=== PATIENT | male | born 1995 | race Caucasian/White ===

== ENCOUNTER 2016-12-14 15:05 | Emergency (ER) | payer BC ==
[~2016-12-14] VITALS: Ht 185.4 cm; Wt 76.5 kg
[2016-12-14 15:13] VITALS: TEMP 37.1; Ht 185.4 cm; Wt 76.5 kg
[2016-12-14] MEDS ORDERED: ONDANSETRON INJ 2 MG/ML 2 ML VIAL IV STA (15:28)
[2016-12-14] MEDS ORDERED: SODIUM CHLORIDE 0.9% 1000ML 2,000 ML IV STA (15:28)
[2016-12-14] MEDS ORDERED: GI COCKTAIL PO STA (15:28)
[2016-12-14] MEDS ORDERED: KETOROLAC TROMETHAMINE 30 MG/ML VIAL IV STA (15:28)
[2016-12-14] MEDS ORDERED: LIDOCAINE HCL 2% VISC SOLN 20 ML UDC ONE (15:58)
[2016-12-14] MEDS ORDERED: ALUMINUM/MAGNESIUM SUSP 30 ML UDC ONE (15:59)
[2016-12-14 16:09] LABS: BASO % 0.2 %; BASO ABS # 0.01 K/uL (0-0.2); COMPLETE YES; EOS % 2.6 %; HEMATOCRIT 42.6 % (42-52); IG% 0.2 %; LYMPH ABS # 1.22 K/uL (1.2-3.4); MEAN CELL VOLUME 86.6 fL (80-100); MEAN CORPUSCULAR HEMOGLOBIN 31.5 pg (25-34); MEAN CORPUSCULAR HGB CONC 36.4 g/dl (32-36); MONO % 9.8 %; NEUT % 63.2 %; PLATELET COUNT 172 K/uL (130-400); RED BLOOD COUNT 4.92 M/uL (4.7-6.1); WHITE BLOOD COUNT 5.08 K/uL (4.8-10.8)
--- NOTE | 2016-12-14 16:20 | DIAGNOSTIC IMAGING REPORT ---
PA CHEST WITH ABDOMINAL SERIES CLINICAL HISTORY: Abdominal bloating. FINDINGS: A PA chest radiograph is obtained. No prior studies are available for comparison at the time of dictation. The cardiomediastinal silhouette is unremarkable. The lungs and pleural spaces are clear. No pneumothorax is seen. The bony thorax is grossly intact. Supine and erect abdominal radiographs are obtained. No prior studies are available for comparison at the time of dictation. There is a nonobstructed abdominal bowel gas pattern. Mild to moderate colonic fecal retention is observed. No evidence of intraperitoneal free air is seen. There are no abnormal abdominal calcifications. The lumbosacral spine and bony pelvis appear intact. IMPRESSION: 1. No active disease in the chest. 2. Unremarkable abdominal radiographs. Electronically signed by: Jay De Leon M.D. 12/14/2016 4:18 PM Dictated Date/Time: 12/14/2016 4:17 PM
[2016-12-14 16:29] LABS: BUN/CREATININE RATIO 14.6 (10-20); CALCIUM 8.9 mg/dl (8.5-10.1); CREATININE 0.95 mg/dl (0.60-1.40); POTASSIUM 3.6 mmol/L (3.5-5.1)
[2016-12-14] MEDS ORDERED: AMPH30TA2 PO (16:34)
--- NOTE | 2016-12-14 17:14 | DIAGNOSTIC IMAGING REPORT ---
Right upper quadrant ultrasound GALLBLADDER-ABD LIMITED CLINICAL HISTORY: parepigastric abd pain pain. Nausea. TECHNIQUE: Ultrasound COMPARISON STUDY: None FINDINGS: Normal gallbladder. Gallbladder wall 3 mm. Common bile duct 4 mm. Liver is uniform. Pancreas and right kidney unremarkable. IMPRESSION: Negative study Electronically signed by: Brice Guardado M.D. 12/14/2016 5:12 PM Dictated Date/Time: 12/14/2016 5:12 PM
[2016-12-14] MEDS ORDERED: FAMO20TA11 PO (17:45)
[2016-12-14 18:40] VITALS: BP 123/60; O2SAT 96
[2016-12-14 19:00] VITALS: PULSE 110
--- NOTE | 2016-12-14 21:56 | EMERGENCY ROOM VISIT NOTE ---
History Report prepared by Abhishek: La Garcia Under the Supervision of: Dr. Arnoldo Bonds D.O. First contact with patient: 15:19 Chief Complaint: ABDOMINAL PAIN Stated Complaint: STOMACH PAIN Nursing Triage Summary: pt to the ED with diffuse abd pain and reflux indigestion for 4 days sent over from [facility] +n/v History of Present Illness The patient is a 21 year old male who presents to the Emergency Room with complaints of persistent epigastric abdominal pain that began four days ago. He currently rates his discomfort as a 6/10 in severity. The patient states he went away this weekend and was drinking most of the weekend. He states that he ate a piece of pizza Monday night and then woke up Monday morning around 0600 vomiting. The patient states that he did not drink so excessively that caused him to vomit. He states that he continued to vomit throughout the weekend. The patient states that his one roommate was recently sick with a stomach virus , and additionally notes that he was sick earlier this year with a stomach virus. He states that today his symptoms feel different. The patient notes abdominal bloating, acid reflux, and nausea with his symptoms today. He states that he noticed chest pain and back pain on Monday night. He notes a decrease in appetite and states that his symptoms are worsened after eating. The patient states that over the last few months he has noticed a pain in behind his bellybutton. He states that his last bowel movement was last evening, stating it was normal. The patient states that he has taken Pepto Bismol with slight relief of his symptoms. He states that he was evaluated at [facility] today for his symptoms and was referred to the emergency department for further work up. Pt denies headache, change in vision, fevers, chest pain, shortness of breath, hematemesis diarrhea, pain with urination, and melena. Source of History: patient Onset: four days ago Position: abdomen (epigastric) Symptom Intensity: 6/10 Timing: other (persistent) Modifying Factors (Worsening): eating Modifying Factors (Relieving): other (Pepto) Associated Symptoms: + nausea, + vomiting Note: Associated Symptoms: abdominal bloating, acid reflux Review of Systems See HPI for pertinent positives & negatives. A total of 10 systems reviewed and were otherwise negative. Past Medical & Surgical Medical Problems: (1) No active medical problems Family History Diabetes mellitus FH: heart disease Hypertension Seizures Social History Smoking Status: Current Every Day Smoker Alcohol Use: occasionally Marital Status: single Housing Status: lives with roommate Occupation Status: [employer] student Current/Historical Medications Scheduled Famotidine (Pepcid), 20 MG PO DAILY Scheduled PRN Amphetamine-Dextroamphetamine 30MG (Adderall 30MG), 30 MG PO BID PRN for Focus Allergies Coded Allergies: No Known Allergies (Unverified , 12/14/16) Physical Exam Vital Signs Date Time Temp Pulse Resp B/P Pulse Ox O2 Delivery O2 Flow Rate FiO2 12/14/16 19:00 110 12/14/16 18:40 67 14 123/60 96 12/14/16 17:30 67 12 119/52 98 Room Air 12/14/16 15:13 37.1 65 16 132/70 99 Physical Exam GENERAL: Sitting up in bed, alert, well appearing, well nourished, no distress, non-toxic EYE EXAM: normal conjunctiva, PERRL and EOM's grossly intact OROPHARYNX: no exudate, no erythema, lips, buccal mucosa, and tongue normal and mucous membranes are moist NECK: supple, no nuchal rigidity, no adenopathy, non-tender LUNGS: Clear to auscultation. Normal chest wall mechanics HEART: no murmurs, S1 normal and S2 normal ABDOMEN: Minimal tenderness in epigastric and right upper quadrant. abdomen soft, normo-active bowel sounds, no masses, no rebound or guarding. BACK: Back is symmetrical on inspection and there is no deformity, no midline tenderness, no CVA tenderness. SKIN: no rashes and no bruising UPPER EXTREMITIES: upper extremities are grossly normal. LOWER EXTREMITIES: No pitting edema. NEURO EXAM: Normal sensorium, cranial nerves II-XII grossly intact, normal speech, no gross weakness of arms, no gross weakness of legs. Medical Decision & Procedures ER Provider Diagnostic Interpretation: Xray results per the radiologist and my interpretation. Other results have been interpreted by the radiologist and reviewed by me. Right upper quadrant ultrasound GALLBLADDER-ABD LIMITED CLINICAL HISTORY: parepigastric abd pain pain. Nausea. TECHNIQUE: Ultrasound COMPARISON STUDY: None FINDINGS: Normal gallbladder. Gallbladder wall 3 mm. Common bile duct 4 mm. Liver is uniform. Pancreas and right kidney unremarkable. IMPRESSION: Negative study Electronically signed by: Brice Guardado M.D. 12/14/2016 5:12 PM Dictated Date/Time: 12/14/2016 5:12 PM PA CHEST WITH ABDOMINAL SERIES CLINICAL HISTORY: Abdominal bloating. FINDINGS: A PA chest radiograph is obtained. No prior studies are available for comparison at the time of dictation. The cardiomediastinal silhouette is unremarkable. The lungs and pleural spaces are clear. No pneumothorax is seen. The bony thorax is grossly intact. Supine and erect abdominal radiographs are obtained. No prior studies are available for comparison at the time of dictation. There is a nonobstructed abdominal bowel gas pattern. Mild to moderate colonic fecal retention is observed. No evidence of intraperitoneal free air is seen. There are no abnormal abdominal calcifications. The lumbosacral spine and bony pelvis appear intact. IMPRESSION: 1. No active disease in the chest. 2. Unremarkable abdominal radiographs. Electronically signed by: Jay De Leon M.D. 12/14/2016 4:18 PM Dictated Date/Time: 12/14/2016 4:17 PM Laboratory Results 12/14/16 15:45 Red Blood Count 4.92, Mean Corpuscular Volume 86.6, Mean Corpuscular Hemoglobin 31.5, Mean Corpuscular Hemoglobin Concent 36.4, Mean Platelet Volume 10.0, Neutrophils (%) (Auto) 63.2, Lymphocytes (%) (Auto) 24.0, Monocytes (%) (Auto) 9.8, Eosinophils (%) (Auto) 2.6, Basophils (%) (Auto) 0.2, Neutrophils # (Auto) 3.21, Lymphocytes # (Auto) 1.22, Monocytes # (Auto) 0.50, Eosinophils # (Auto) 0.13, Basophils # (Auto) 0.01 12/14/16 15:45 Test 12/14/16 15:45 White Blood Count 5.08 K/uL (4.8-10.8) Red Blood Count 4.92 M/uL (4.7-6.1) Hemoglobin 15.5 g/dL (14.0-18.0) Hematocrit 42.6 % (42-52) Mean Corpuscular Volume 86.6 fL (80-100) Mean Corpuscular Hemoglobin 31.5 pg (25-34) Mean Corpuscular Hemoglobin Concent 36.4 g/dl (32-36) Platelet Count 172 K/uL (130-400) Mean Platelet Volume 10.0 fL (7.4-10.4) Neutrophils (%) (Auto) 63.2 % Lymphocytes (%) (Auto) 24.0 % Monocytes (%) (Auto) 9.8 % Eosinophils (%) (Auto) 2.6 % Basophils (%) (Auto) 0.2 % Neutrophils # (Auto) 3.21 K/uL (1.4-6.5) Lymphocytes # (Auto) 1.22 K/uL (1.2-3.4) Monocytes # (Auto) 0.50 K/uL (0.11-0.59) Eosinophils # (Auto) 0.13 K/uL (0-0.5) Basophils # (Auto) 0.01 K/uL (0-0.2) RDW Standard Deviation 39.9 fL (36.4-46.3) RDW Coefficient of Variation 12.5 % (11.5-14.5) Immature Granulocyte % (Auto) 0.2 % Immature Granulocyte # (Auto) 0.01 K/uL (0.00-0.02) Anion Gap 9.0 mmol/L (3-11) Est Creatinine Clear Calc Drug Dose 132.0 ml/min Estimated GFR () 131.2 Estimated GFR (Non- 113.2 BUN/Creatinine Ratio 14.6 (10-20) Calcium Level 8.9 mg/dl (8.5-10.1) Total Bilirubin 0.6 mg/dl (0.2-1) Direct Bilirubin 0.1 mg/dl (0-0.2) Aspartate Amino Transf (AST/SGOT) 25 U/L (15-37) Alanine Aminotransferase (ALT/SGPT) 35 U/L (12-78) Alkaline Phosphatase 84 U/L (45-117) Total Protein 7.6 gm/dl (6.4-8.2) Albumin 4.2 gm/dl (3.4-5.0) Lipase 52 U/L (73-393) Laboratory results per my review. Medications Administered Medications (Trade) Dose Ordered Sig/Jani Route Start Time Stop Time Status Last Admin Dose Admin Sodium Chloride (Nss 1000ml) 2,000 ml @ 999 mls/hr Q2H1M STAT IV 12/14/16 15:28 12/14/16 17:28 DC 12/14/16 15:50 999 MLS/HR Ondansetron HCl (Zofran Inj) 4 mg NOW STAT IV 12/14/16 15:28 12/14/16 15:30 DC 12/14/16 15:58 4 MG Miscellaneous Medication (Gi Cocktail) 24 ml NOW STAT PO 12/14/16 15:28 12/14/16 15:30 DC 12/14/16 15:59 24 ML Ketorolac Tromethamine (Toradol Inj) 30 mg NOW STAT IV 12/14/16 15:28 12/14/16 15:30 DC 12/14/16 15:58 30 MG Lidocaine HCl (Viscous Lidocaine 2% Soln) 20 ml STK-MED ONCE .ROUTE 12/14/16 15:58 12/14/16 15:59 DC 12/14/16 15:59 20 ML Al Hydroxide/Mg Hydroxide (Maalox Susp) 30 ml STK-MED ONCE .ROUTE 12/14/16 15:59 12/14/16 16:00 DC 12/14/16 15:59 30 ML ED Course ED COURSE: Vital signs were reviewed and showed normal vitals The patients medical record was reviewed The above diagnostic studies were performed and reviewed. ED treatments and interventions as stated above. 1521: The patient was evaluated in room C5. A complete history and physical examination was performed. 1528: Ordered Toradol Inj 30 mg IV, GI Cocktail 24 ml PO, Zofran Inj 4 mg , Sodium Chloride 2000 ml @ 999 mls/hr IV. 1738: Upon reevaluation, the patient is feeling significantly better.I discussed my findings with the patient and he understands and agrees with the treatment plan. Based on the patients age, coexisting illnesses, exam and lab findings the decision to treat as an outpatient was made. The patient remained stable while under my care. The patient appeared well at the time of discharge. Medical Decision Differential diagnoses includes but is not limited to gastritis, peptic ulcer disease, GERD, gallbladder disease, pancreatitis, small bowel obstruction, acute coronary syndrome, pericarditis, ischemic bowel, irritable bowel disease, irritable bowel syndrome, appendicitis, diverticulitis, malignancy, hernia, urinary tract infection, torsion, perforation, trauma, infectious. Patient is a 21-year-old male who presents the ER for epigastric abdominal pain that has been present for the past 4 days. He notes it started drinking and has never had this before. It is worsened with eating. His exam is fairly benign. Labs show no significant leukocytosis or anemia. BMP along with LFTs, bilirubin and lipase is unremarkable. Patient no urinary symptoms. Obstruction series and ultrasound the right upper quadrant was unremarkable. He was given Toradol, bolus normal saline and a GI cocktail. He felt significantly better. I do favor this is likely gastritis. Patient was discharged follow-up with PCP. Discussed with Pt concerning signs and symptoms to watch out for. Pt was instructed to follow up with their PCP and discussed with the patient their option to return to the ED at anytime for persistent or worsening symptoms. The appropriate anticipatory guidance and out-patient management, including indications for return to the emergency department, were explained at length to the patient and understood. Impression Primary Impression: Epigastric abdominal pain Additional Impression: Gastritis Scribe Attestation The scribe's documentation has been prepared under my direction and personally reviewed by me in its entirety. I confirm that the note above accurately reflects all work, treatment, procedures, and medical decision making performed by me. Departure Information Dispostion Home / Self-Care Prescriptions Famotidine (Pepcid) 20 Mg Tab 20 MG PO DAILY, #30 TAB Prov: Arnoldo Bonds, DO 12/14/16 Referrals No Doctor, Assigned (PCP) Forms HOME CARE DOCUMENTATION FORM, IMPORTANT VISIT INFORMATION Patient Instructions ED Gastritis, My [facility] Additional Instructions Please follow up with your primary care doctor or if you are a student [facility] services with in the next 24 hours. Any worsening of your symptoms, please return to the ED immediately. This includes persistent abdominal pain, vomiting blood, blood in her stool, passing out, or any other concerning signs or symptoms from your standpoint. Please do not take any NSAIDs which include Motrin or ibuprofen. Please do not drink alcohol for the next 2 weeks. Please take medications as prescribed. Problem Qualifiers Additional Impression: Gastritis Gastritis type: other gastritis Chronicity: acute Gastritis bleeding: without bleeding Qualified Codes: K29.00 - Acute gastritis without bleeding
== END 2016-12-14 18:43 | disposition home or self-care (01) ==
LOC: C.EDB 15:08 → C.EDC 18:43
DX: K29.70 Gastritis, unspecified, without bleeding (principal); R10.13 Epigastric pain; F17.200 Nicotine dependence, unspecified, uncomplicated; Z83.3 Family history of diabetes mellitus; Z82.49 Family history of ischemic heart disease and other diseases of the circulatory system; Z82.0 Family history of epilepsy and other diseases of the nervous system